=== PATIENT | female | born 1980 | race African-American/Black ===

== ENCOUNTER 2023-06-11 05:38 | Emergency (ER) | payer MEDICAID ==
[~2023-06-11] VITALS: Ht 170.2 cm; Wt 71.7 kg
[2023-06-11 06:00] VITALS: BP_SYST 115; PULSE 86; RESP 16; TEMP 97.4; O2SAT 98
[2023-06-11] MEDS ORDERED: NAPR-688 PO (06:27)
[2023-06-11] MEDS ORDERED: CEPH-548 PO (06:27)
[2023-06-11] MEDS ORDERED: TRAM50TA2 PO (06:27)
== END 2023-06-11 06:28 | disposition home or self-care (01) ==
LOC: SED 05:38
DX: R59.1 Generalized enlarged lymph nodes (principal); G44.209 Tension-type headache, unspecified, not intractable; R09.81 Nasal congestion; Z79.899 Other long term (current) drug therapy
CPT/HCPCS: 99283

== ENCOUNTER 2023-08-12 10:56 | Emergency (ER) | payer MEDICAID ==
[~2023-08-12] VITALS: Ht 170.2 cm; Wt 61.2 kg
[~2023-08-12 10:56] MED LIST: CEPH-548 PO; NAPR-688 PO; TRAM50TA2 PO
[2023-08-12 14:30] VITALS: BP_SYST 112; PULSE 103; RESP 18; TEMP 98.1; O2SAT 97
== END 2023-08-12 14:04 | disposition home or self-care (01) ==
LOC: SED 10:56
DX: M79.662 Pain in left lower leg (principal); Z79.899 Other long term (current) drug therapy
CPT/HCPCS: 93971; 99284